=== PATIENT | male | born 1935 | race Caucasian/White ===

== ENCOUNTER → 2016-08-13 | Outpatient (CLI) | payer OTHER | LOC: MMPC 09:00 | DX: M54.5 Low back pain (principal) | CPT/HCPCS: 99212; G0463 ==

== ENCOUNTER → 2016-11-05 | Outpatient (CLI) | payer OTHER | LOC: MMPC 09:00 | DX: R05 Cough (principal); R09.02 Hypoxemia; R09.81 Nasal congestion; J44.9 Chronic obstructive pulmonary disease, unspecified | CPT/HCPCS: 99213; G0463 ==